=== PATIENT | male | born 1995 | race Hispanic/Latino ===

== ENCOUNTER 2021-06-20 20:20 | Emergency (ER) | payer BC, OTHER ==
[2021-06-20] MEDS ORDERED: CASIRIVIMAB/IMDEVIMAB 10 ML VIAL ONE (21:40)
[2021-06-20] MEDS ORDERED: NA CHLORIDE 0.9% 250 ML ONE (21:43)
[2021-06-20] MEDS ORDERED: NA CHLORIDE 0.9% 50 ML ONE (21:43)
--- NOTE | 2021-06-20 21:46 | RAD REPORT ---
EXAM DESCRIPTION: Devyn Single View06/20/2021 9:28 pm CLINICAL HISTORY: Chest pain COMPARISON: none FINDINGS: Moderate bilateral pulmonary opacities. The heart is normal size IMPRESSION: Moderate bilateral pulmonary opacities probably pneumonia
[2021-06-20] MEDS ORDERED: ACETAMINOPHEN 500 MG TAB ONE (21:54)
--- NOTE | 2021-06-20 22:59 | ER ---
Nurse's Notes [facility] Name: Du Chau Age: 25 yrs Sex: Male : 1995 Arrival Date: 06/20/2021 Time: 20:23 Bed 10 Private MD: Diagnosis: Pneumonia due to SARS-associated coronavirus Presentation: 06/20 20:35 Chief complaint: Patient states: Pt states he has been feeling SOB for 3 days. States wg he was seen at urgent care and diagnosed with Covid today, for work, but didn't tell them he was having SOB. Pt has had a non-productive cough and had a little blood from his nose. Denies N/V/D. Pt denies taking anything for fever/discomfort. Coronavirus screen: Client presents with at least one sign or symptom that may indicate coronavirus-19. Standard/surgical mask placed on the client. Provider contacted for isolation considerations. Client reports previous positive COVID test result. Date of collection: June 20, 2021. Ebola Screen: Patient negative for fever greater than or equal to 101.5 degrees Fahrenheit, and additional compatible Ebola Virus Disease symptoms Patient denies exposure to infectious person. Patient denies travel to an Ebola-affected area in the 21 days before illness onset. No symptoms or risks identified at this time. Initial Sepsis Screen: Does the patient meet any 2 criteria? No. Patient's initial sepsis screen is negative. Does the patient have a suspected source of infection? No. Patient's initial sepsis screen is negative. Risk Assessment: Do you want to hurt yourself or someone else? Patient reports no desire to harm self or others. Onset of symptoms was June 17, 2021. 20:35 Method Of Arrival: Ambulatory 20:35 Acuity: LESLIE 4 Triage Assessment: 20:38 General: Appears in no apparent distress. well groomed, well developed, Behavior is calm, cooperative, appropriate for age. Pain: Denies pain. Respiratory: Reports shortness of breath at rest on exertion cough that is non-productive, dry, Airway is patent Trachea midline Respiratory effort is even, unlabored, Respiratory pattern is regular, Breath sounds are clear bilaterally. Onset: The symptoms/episode began/occurred gradually, the patient has mild shortness of breath. Historical: - Allergies: 20:38 No Known Allergies; wg - Home Meds: 20:38 None [Active]; wg - PMHx: 20:38 None; wg - Immunization history:: Adult Immunizations up to date. - Social history:: Smoking status: Patient denies any tobacco usage or history of. Screenin:45 Abuse screen: Denies threats or abuse. Nutritional screening: No deficits noted. cc4 Tuberculosis screening: No symptoms or risk factors identified. Fall Risk None identified. Assessment: 20:45 Cardiovascular: Denies chest pain, Heart tones S1 S2 Capillary refill < 3 seconds cc4 Rhythm is sinus rhythm. Respiratory: Reports shortness of breath cough that is productive, Airway is patent. 20:45 GI: No signs and/or symptoms were reported involving the gastrointestinal system. cc4 21:37 Reassessment: patient presented his covid positive results from clinic earlier today. ms4 LORETTA Barkley gave order to give regencov. consents signed. 22:00 Reassessment: No changes from previously documented assessment. Consent signed for cc4 Regen administration with information given on Regen \T\ v/u; saline lock inserted left wrist with #22 g angiocath, miguel. well; Regen 600mg/250 ml NS hung \T\ infusing left wrist with no s/sx's of infiltration, miguel. well; VSS.. 23:00 Reassessment: No changes from previously documented assessment. Regen infusion cc4 complete; denies any complaints; VSS; instructed on monitoring for additional one hour with v/u; NADN. 06/21 00:00 Reassessment: Patient appears in no apparent distress at this time. Denies any cc4 complaints; reports feeling better; VSS; NADN. Patient states feeling better. Vital Signs: 06/20 20:35 BP 125 / 96; Pulse 92; Resp 18; Temp 98.7; Pulse Ox 97% on R/A; Weight 99.79 kg; Height 5 ft. 11 in. (180.34 cm); Pain 0/10; 20:45 BP 115 / 72; Pulse 90; Resp 20; Pulse Ox 97% on R/A; cc4 22:00 BP 118 / 65; Pulse 90; Resp 21; Temp 97.8(O); Pulse Ox 96% on R/A; cc4 23:00 BP 100 / 63; Pulse 78; Resp 22; Temp 97.8(O); Pulse Ox 97% on R/A; cc4 06/21 00:00 BP 109 / 55; Pulse 78; Resp 20; Temp 97.7; Pulse Ox 97% on R/A; cc4 06/20 20:35 Body Mass Index 30.68 (99.79 kg, 180.34 cm) ED Course: 06/20 20:23 Patient arrived in ED. cf2 20:38 Triage completed. wg 20:38 Arm band placed on right wrist. wg 20:40 Eliane Hdez, CRUZ is Primary Nurse. cc4 20:48 Filippo Monsivais PA is PHCP. jr8 20:48 Marc Helton MD is Attending Physician. jr8 :28 XRAY Chest (1 view) In Process Unspecified. EDMS 22:45 No provider procedures requiring assistance completed. cc4 06/21 00:00 Patient has correct armband on for positive identification. Call light in reach. cc4 00:00 IV discontinued, intact, bleeding controlled, No redness/swelling at site. Pressure cc4 dressing applied. Administered Medications: 00:33 Discontinued: REGEN-COV Dose Pack 120 mg/mL-120 mg/mL (EUA) 600 mg IV at calculated cc4 rate Per protocol 06/20 21:31 Drug: Tylenol 1000 mg Route: PO; ms4 23:10 Follow up: Response: No adverse reaction cc4 22:00 Drug: REGEN-COV Dose Pack 120 mg/mL-120 mg/mL (EUA) 600 mg Route: IV; Rate: calculated cc4 rate; Site: left wrist; 23:00 Follow up: Response: No adverse reaction; No change in condition cc4 Outcome: 22:59 Discharge ordered by . jr8 06/21 00:00 Condition: improved cc4 00:00 Discharged to home ambulatory. cc4 00:00 Condition: stable 00:00 Discharge instructions given to patient, Instructed on discharge instructions, follow up and referral plans. medication usage, Demonstrated understanding of instructions, follow-up care, medications, Prescriptions given X 1. 00:34 Patient left the ED. cc4 Signatures: Dispatcher [employer] EDMS Filippo Monsivais PA PA jr8 Becky Walters cf2 Aaliyah Cartagena RN RN ms4 Gamba, Calvin, Eliane Browning RN RN cc4 Corrections: (The following items were deleted from the chart) 06/20 21:00 20:57 General: Appears uncomfortable, Behavior is calm, cooperative, cc4 cc4 : 20:57 Cardiovascular: cc4 cc4
--- NOTE | 2021-06-20 22:59 | EDPHYS ---
Physician Documentation [facility] Name: Du Chau Age: 25 yrs Sex: Male : 1995 Arrival Date: 06/20/2021 Time: 20:23 Bed 10 Private MD: ED Physician Marc Helton HPI: 06/20 21:14 This 25 yrs old Male presents to ER via Ambulatory with complaints of jr8 Breathing Difficulty, VOMITING BLOOD, Nose Bleed, COVID POSITIVE. 21:14 This is a 25-year-old male that presented with signs and symptoms of Covid. Stated that jr8 the symptoms started today and was to tested at urgent care and was tested positive. At that time did not notify them that he was short of breath but has had mild increase in shortness of breath with his coughing throughout this evening. Came back for further evaluation.. Historical: - Allergies: 20:38 No Known Allergies; wg - Home Meds: 20:38 None [Active]; wg - PMHx: 20:38 None; wg - Immunization history:: Adult Immunizations up to date. - Social history:: Smoking status: Patient denies any tobacco usage or history of. ROS: 21:14 Eyes: Negative for injury, pain, redness, and discharge, ENT: Negative for injury, jr8 pain, and discharge, Neck: Negative for injury, pain, and swelling, Cardiovascular: Negative for chest pain, palpitations, and edema, Abdomen/GI: Negative for abdominal pain, nausea, vomiting, diarrhea, and constipation, Back: Negative for injury and pain, MS/Extremity: Negative for injury and deformity, Skin: Negative for injury, rash, and discoloration, Neuro: Negative for headache, weakness, numbness, tingling, and seizure. 21:14 Respiratory: Positive for cough, shortness of breath. Exam: 21:14 Eyes: Pupils equal round and reactive to light, extra-ocular motions intact. Lids and jr8 lashes normal. Conjunctiva and sclera are non-icteric and not injected. Cornea within normal limits. Periorbital areas with no swelling, redness, or edema. ENT: Nares patent. No nasal discharge, no septal abnormalities noted. Tympanic membranes are normal and external auditory canals are clear. Oropharynx with no redness, swelling, or masses, exudates, or evidence of obstruction, uvula midline. Mucous membranes moist. Neck: Trachea midline, no thyromegaly or masses palpated, and no cervical lymphadenopathy. Supple, full range of motion without nuchal rigidity, or vertebral point tenderness. No Meningismus. Cardiovascular: Regular rate and rhythm with a normal S1 and S2. No gallops, murmurs, or rubs. Normal PMI, no JVD. No pulse deficits. Respiratory: Lungs have equal breath sounds bilaterally, clear to auscultation and percussion. No rales, rhonchi or wheezes noted. Mild tachypnea present Abdomen/GI: Soft, non-tender, with normal bowel sounds. No distension or tympany. No guarding or rebound. No evidence of tenderness throughout. Back: No spinal tenderness. No costovertebral tenderness. Full range of motion. Skin: Warm, dry with normal turgor. Normal color with no rashes, no lesions, and no evidence of cellulitis. MS/ Extremity: Pulses equal, no cyanosis. Neurovascular intact. Full, normal range of motion. Neuro: Awake and alert, GCS 15, oriented to person, place, time, and situation. Cranial nerves II-XII grossly intact. Motor strength 5/5 in all extremities. Sensory grossly intact. Cerebellar exam normal. Normal gait. Vital Signs: 20:35 BP 125 / 96; Pulse 92; Resp 18; Temp 98.7; Pulse Ox 97% on R/A; Weight 99.79 kg; Height wg 5 ft. 11 in. (180.34 cm); Pain 0/10; 20:45 BP 115 / 72; Pulse 90; Resp 20; Pulse Ox 97% on R/A; cc4 22:00 BP 118 / 65; Pulse 90; Resp 21; Temp 97.8(O); Pulse Ox 96% on R/A; cc4 23:00 BP 100 / 63; Pulse 78; Resp 22; Temp 97.8(O); Pulse Ox 97% on R/A; cc4 06/21 00:00 BP 109 / 55; Pulse 78; Resp 20; Temp 97.7; Pulse Ox 97% on R/A; cc4 06/20 20:35 Body Mass Index 30.68 (99.79 kg, 180.34 cm) [facility]: 06/20 20:48 Patient medically screened. jr8 22:58 Data reviewed: vital signs, nurses notes, radiologic studies, plain films. Data jr8 interpreted: Pulse oximetry: on room air is 96 %. Interpretation: normal. Counseling: I had a detailed discussion with the patient and/or guardian regarding: the historical points, exam findings, and any diagnostic results supporting the discharge/admit diagnosis, lab results, radiology results, the need for outpatient follow up, a family practitioner, to return to the emergency department if symptoms worsen or persist or if there are any questions or concerns that arise at home. ED course: Patient tolerated infusion well. Pulse oximetry remains normal level. Patient less short of breath. Was sent home on some cough medicine as well. No other further medications needed at this time. Close return precautions given as well.. 06/20 20:56 Order name: XRAY Chest (1 view); Complete Time: 21:48 jr8 Administered Medications: 06/21 00:33 Discontinued: REGEN-COV Dose Pack 120 mg/mL-120 mg/mL (EUA) 600 mg IV at calculated cc4 rate Per protocol 06/20 21:31 Drug: Tylenol 1000 mg Route: PO; ms4 23:10 Follow up: Response: No adverse reaction cc4 22:00 Drug: REGEN-COV Dose Pack 120 mg/mL-120 mg/mL (EUA) 600 mg Route: IV; Rate: calculated cc4 rate; Site: left wrist; 23:00 Follow up: Response: No adverse reaction; No change in condition cc4 Disposition: 06/21 05:34 Co-signature as Attending Physician, Marc Helton MD. [email or web address] Disposition Summary: 06/20/21 22:59 Discharge Ordered Location: Home jr8 Problem: new jr8 Symptoms: have improved jr8 Condition: Stable jr8 Diagnosis - Pneumonia due to SARS-associated coronavirus jr8 Followup: jr8 - With: Private Physician - When: 2 - 3 days - Reason: Recheck today's complaints, Continuance of care, Re-evaluation by your physician Discharge Instructions: - Discharge Summary Sheet jr8 - COVID-19 jr8 Forms: - Medication Reconciliation Form jr8 - Thank You Letter jr8 - Antibiotic Education jr8 - Prescription Opioid Use jr8 Prescriptions: - promethazine-DM 6.25-15 mg/5 mL Oral syrup - take 5 milliliter by ORAL route every 4-6 hours as needed, not to exceed 30 mL jr8 in 24 hours; 120 milliliter; Refills: 0, Product Selection Permitted Signatures: Dispatcher [employer] Filippo Zhang PA PA jr8 Marc Helton MD MD mh7 Aaliyah Cartagena RN RN ms4 Calvin Jacob RN wg Cooper, Christie, RN RN cc4
[2021-06-21 00:42] VITALS: O2SAT 97
[2021-06-21 00:43] VITALS: BP 109/55; TEMP 97.7
== END 2021-06-21 00:34 | disposition home or self-care (01) ==
LOC: ER 20:20
DX: U07.1 COVID-19 (principal); J12.82 Pneumonia due to coronavirus disease 2019
CPT/HCPCS: 71045; 96374; 99284; J7050

== ENCOUNTER 2022-04-16 16:37 | Observation (INO) | payer BC ==
--- OUTSIDE RECORDS SUMMARY | 2022-04-16 16:40 | XMS REPORT | Continuity of Care Document ---
:1995 Author Organization [facility] t Address [address] [place] [address] Dr. [address] [place] [address] Care Team Providers Name Role Phone Pcp, Does Not Have A Primary Care Physician ELDA VALVERDE Attending Clinician Unavailable Elda Valverde MD Attending Clinician Nurse, Db Urgent [facility] Attending Clinician Unavailable Ayaan BALL MILL MIXER Attending Clinician AYAAN Attending Clinician Unavailable Only, Db Test Attending Clinician Unavailable Sunday BERNSTEIN Attending Clinician Eden Conteh DO Attending Clinician Doctor Unassigned, Name Attending Clinician Unavailable Provider, Db Urgent Care Attending Clinician Unavailable Payers Payer Name Policy Type Policy Number Effective Date Expiration Date [facility] [id number] 2013 [facility] MEDICAID 00:00:00 [facility] - [id number] 2018 OUT OF STATE 00:00:00 Problems Condition Condition Condition Status Onset Resolution Last Treating Co mments Source Name Details Category Date Date Treatment Clinician Date Acne Acne Disease Active Univers cystica cystica 06-05 ity of 00:00: [address] Allergies, Adverse Reactions, Alerts Allergy Allergy Status Severity Reaction(s) Onset Inactive Treating Comm ents Source Name Type Date Date Clinician NO KNOWN Drug Active Univers ALLERGIE Class ity of [facility] Social History Social Habit Start Date Stop Date Quantity Comments Source Exposure to 2022-04-06 2022-04-16 Not sure University of SARS-CoV-2 00:00:00 14:33:00 [place] [facility] (event) Branch Alcohol intake 2022-04-03 2022-04-03 Current University 00:00:00 00:00:00 non-drinker of [facility] alcohol (finding) [place] Tobacco use and 2013-05-05 2013-05-05 Smokeless tobacco Un iversity of exposure 00:00:00 00:00:00 non-user [facility] Sex Assigned At [birth year] Universit y of 00:00:00 00:00:00 [facility] Smoking Status Start Date Stop Date Source Never smoked tobacco [facility] Medications Ordered Filled Start Stop Current Ordering Indication Dosage Frequency Signature Comments Components Source Medication Medication Date Date Medication? Clinician (SIG) Name Name bromphenira Yes [id number] 5mL Take 5 mL Univers mine-pseudo 9-29 by mouth 4 it y of ephedrine-D 00:00: (four) [place] s M (BROMFED 00 times Medical DM) 2-30-10 daily as Bran ch mg/5 mL needed for syrup Congestion /Allergies . albuterol Yes [id number] 2{puff} Inhale 2 Univers 90 9-29 Puffs ity of mcg/actuati 00:00: every 4 [place] as on inhaler 00 (four) Medical hours as Branch needed for Wheezing or Shortness of Breath. benzonatate Yes [id number] 100mg Take 1 Univers 100 mg 9-29 capsule by ity of capsule 00:00: mouth 3 [place] 00 (three) Medical times Branch daily as needed for Cough. bromphenira Yes [id number] 5mL Take 5 mL Univers mine-pseudo 9-29 by mouth 4 it y of ephedrine-D 00:[place]: ([place] ([place] 00 times Medical DM) 2-30-10 daily as Bran ch mg/5 mL needed for syrup Congestion /Allergies . albuterol Yes [id number] 2{puff} Inhale 2 Univers 90 9-29 Puffs ity of mcg/actuati 00:00: every 4 [place] as on inhaler 00 (four) Medical hours as Branch needed for Wheezing or Shortness of Breath. benzonatate Yes [id number] 100mg Take 1 Univers 100 mg 9-29 capsule by ity of capsule 00:00: mouth 3 [place] 00 (three) Medical times Branch daily as needed for Cough. bromphenira 0 Yes [id number] 5mL Take 5 mL Univers mine-pseudo 9-29 by mouth 4 it y of ephedrine-D 00:00: (four[place] (BROMF[place] 00 times Medical DM) 2-30-10 daily as Bran ch mg/5 mL needed for syrup Congestion /Allergies . albuterol Yes [id number] 2{puff} Inhale 2 Univers 90 9-29 Puffs ity of mcg/actuati 00:00: every 4 [place] as on inhaler 00 (four) Medical hours as Branch needed for Wheezing or Shortness of Breath. benzonatate Yes [id number] 100mg Take 1 Univers 100 mg 9-29 capsule by ity of capsule 00:00: mouth 3 [place] 00 (three) Medical times Branch daily as needed for Cough. bromphenira Yes [id number] 5mL Take 5 mL Univers mine-pseudo 9-29 by mouth 4 it y of ephedrine-D 00:00: (four[place] (BROMFED 00 times Medical DM) 2-30-10 daily as Bran ch mg/5 mL needed for syrup Congestion /Allergies . albuterol Yes [id number] 2{puff} Inhale 2 Univers 90 9-29 Puffs ity of mcg/actuati 00:00: every 4 [place] as on inhaler 00 (four) Medical hours as Branch needed for Wheezing or Shortness of Breath. benzonatate Yes [id number] 100mg Take 1 Univers 100 mg 9-29 capsule by ity of capsule 00:00: mouth 3 [place] 00 (three) Medical times Branch daily as needed for Cough. clindamycin Yes [id number] Apply to Univers -benzoyl 8-18 affected ity of peroxide 00:00: area(s) [place] (BENZACLIN 00 every Medical PUMP) gel morning. Branch minocycline Yes [id number] 100mg Take 1 Tab Univers (DYNACIN) 8-18 by mouth 2 ity of 100 mg 00:00: (two) [place] tablet 00 times Medical daily. Branch tretinoin Yes [id number] Apply to Univers (RETIN-A) 8-18 affected ity of 0.05 % 00:00: area(s) at [place] cream 00 bedtime. Medical Branch clindamycin Yes [id number] Apply to Univers -benzoyl 8-18 affected ity of peroxide 00:00: area(s) [place] (BENZACLIN 00 every Medical PUMP) gel morning. Branch minocycline Yes [id number] 100mg Take 1 Tab Univers (DYNACIN) 8-18 by mouth 2 ity of 100 mg 00:00: (two) [place] tablet 00 times Medical daily. Branch tretinoin Yes [id number] Apply to Univers (RETIN-A) 8-18 affected ity of 0.05 % 00:00: area(s) at [place] cream 00 bedtime. Medical Branch clindamycin Yes [id number] Apply to Univers -benzoyl 8-18 affected ity of peroxide 00:00: area(s) [place] (BENZACLIN 00 every Medical PUMP) gel morning. Branch minocycline Yes [id number] 100mg Take 1 Tab Univers (DYNACIN) 8-18 by mouth 2 ity of 100 mg 00:00: (two) [place] tablet 00 times Medical daily. Branch tretinoin Yes [id number] Apply to Univers (RETIN-A) 8-18 affected ity of 0.05 % 00:00: area(s) at [place] cream 00 bedtime. Medical Branch clindamycin Yes [id number] Apply to Univers -benzoyl 8-18 affected ity of peroxide 00:00: area(s) [place] (BENZACLIN 00 every Medical PUMP) gel morning. Branch minocycline Yes [id number] 100mg Take 1 Tab Univers (DYNACIN) 8-18 by mouth 2 ity of 100 mg 00:00: (two) [place] tablet 00 times Medical daily. Branch tretinoin Yes [id number] Apply to Univers (RETIN-A) 8-18 affected ity of 0.05 % 00:00: area(s) at [place] cream 00 bedtime. Medical Branch clindamycin Yes [id number] Apply to Univers -benzoyl 8-18 affected ity of peroxide 00:00: area(s) [place] (BENZACLIN 00 every Medical PUMP) gel morning. Branch minocycline Yes [id number] 100mg Take 1 Tab Univers (DYNACIN) 8-18 by mouth 2 ity of 100 mg 00:00: (two) [place] tablet 00 times Medical daily. Branch tretinoin Yes [id number] Apply to Univers (RETIN-A) 8-18 affected ity of 0.05 % 00:00: area(s) at [place] cream 00 bedtime. Medical Branch clindamycin Yes [id number] Apply to Univers -benzoyl 8-18 affected ity of peroxide 00:00: area(s) [place] (BENZACLIN 00 every Medical PUMP) gel morning. Branch minocycline Yes [id number] 100mg Take 1 Tab Univers (DYNACIN) 8-18 by mouth 2 ity of 100 mg 00:00: (two) [place] tablet 00 times Medical daily. Branch tretinoin Yes [id number] Apply to Univers (RETIN-A) 8-18 affected ity of 0.05 % 00:00: area(s) at [place] cream 00 bedtime. Medical Branch clindamycin Yes [id number] Apply to Univers -benzoyl 8-18 affected ity of peroxide 00:00: area(s) [place] (BENZACLIN 00 every Medical PUMP) gel morning. Branch minocycline Yes [id number] 100mg Take 1 Tab Univers (DYNACIN) 8-18 by mouth 2 ity of 100 mg 00:00: (two) [place] tablet 00 times Medical daily. Branch tretinoin Yes [id number] Apply to Univers (RETIN-A) 8-18 affected ity of 0.05 % 00:00: area(s) at [place] cream 00 bedtime. Medical Branch clindamycin Yes [id number] Apply to Univers -benzoyl 8-18 affected ity of peroxide 00:00: area(s) [place] (BENZACLIN 00 every Medical PUMP) gel morning. Branch clindamycin Yes [id number] Apply to Univers -benzoyl 8-18 affected ity of peroxide 00:00: area(s) [place] (BENZACLIN 00 every Medical PUMP) gel morning. Branch minocycline Yes [id number] 100mg Take 1 Tab Univers (DYNACIN) 8-18 by mouth 2 ity of 100 mg 00:00: (two) [place] tablet 00 times Medical daily. Branch tretinoin Yes [id number] Apply to Univers (RETIN-A) 8-18 affected ity of 0.05 % 00:00: area(s) at [place] cream 00 bedtime. Medical Branch minocycline Yes [id number] 100mg Take 1 Tab Univers (DYNACIN) 8-18 by mouth 2 ity of 100 mg 00:00: (two) [place] tablet 00 times Medical daily. Branch tretinoin Yes [id number] Apply to Univers (RETIN-A) 8-18 affected ity of 0.05 % 00:00: area(s) at [place] cream 00 bedtime. Medical Branch minocycline Yes 100mg Take 1 Tab Univers (DYNACIN) 9-30 by mouth 2 ity of 100 mg 00:00: (two) [place] tablet 00 times Medical daily. Branch clindamycin Yes Apply to U nivers -benzoyl 9-30 affected ity of peroxide 00:00: area(s) [place] (BENZACLIN 00 every Medical PUMP) gel morning. Branch minocycline Yes 100mg Take 1 Tab Univers (DYNACIN) 9-30 by mouth 2 ity of 100 mg 00:00: (two) [place] tablet 00 times Medical daily. Branch clindamycin Yes Apply to U nivers -benzoyl 9-30 affected ity of peroxide 00:00: area(s) [place] (BENZACLIN 00 every Medical PUMP) gel morning. Branch minocycline Yes 100mg Take 1 Tab Univers (DYNACIN) 9-30 by mouth 2 ity of 100 mg 00:00: (two) [place] tablet 00 times Medical daily. Branch clindamycin Yes Apply to U nivers -benzoyl 9-30 affected ity of peroxide 00:00: area(s) [place] (BENZACLIN 00 every Medical PUMP) gel morning. Branch minocycline Yes 100mg Take 1 Tab Univers (DYNACIN) 9-30 by mouth 2 ity of 100 mg 00:00: (two) [place] tablet 00 times Medical daily. Branch clindamycin Yes Apply to U nivers -benzoyl 9-30 affected ity of peroxide 00:00: area(s) [place] (BENZACLIN 00 every Medical PUMP) gel morning. Branch minocycline 2012- Yes 100mg Take 1 Tab Univers (DYNACIN) 9-30 by mouth 2 ity of 100 mg 00:00: (two) [place] tablet 00 times Medical daily. Branch clindamycin Yes Apply to U nivers -benzoyl 9-30 affected ity of peroxide 00:00: area(s) [place] (BENZACLIN 00 every Medical PUMP) gel morning. Branch minocycline Yes 100mg Take 1 Tab Univers (DYNACIN) 9-30 by mouth 2 ity of 100 mg 00:00: (two) [place] tablet 00 times Medical daily. Branch clindamycin Yes Apply to U nivers -benzoyl 9-30 affected ity of peroxide 00:00: area(s) [place] (BENZACLIN 00 every Medical PUMP) gel morning. Branch minocycline Yes 100mg Take 1 Tab Univers (DYNACIN) 9-30 by mouth 2 ity of 100 mg 00:00: (two) [place] tablet 00 times Medical daily. Branch clindamycin Yes Apply to U nivers -benzoyl 9-30 affected ity of peroxide 00:00: area(s) [place] (BENZACLIN 00 every Medical PUMP) gel morning. Branch minocycline Yes 100mg Take 1 Tab Univers (DYNACIN) 9-30 by mouth 2 ity of 100 mg 00:00: (two) [place] tablet 00 times Medical daily. Branch clindamycin Yes Apply to U nivers -benzoyl 9-30 affected ity of peroxide 00:00: area(s) [place] (BENZACLIN 00 every Medical PUMP) gel morning. Branch minocycline Yes 100mg Take 1 Tab Univers (DYNACIN) 9-30 by mouth 2 ity of 100 mg 00:00: (two) [place] tablet 00 times Medical daily. Branch clindamycin Yes Apply to U nivers -benzoyl 9-30 affected ity of peroxide 00:00: area(s) [place] (BENZACLIN 00 every Medical PUMP) gel morning. Branch Vital Signs Vital Name Observation Time Observation Value Comments Source Systolic blood 2022-04-16 19:33:00 135 mm[Hg] Univer sity of pressure [facility] Diastolic blood 2022-04-16 19:33:00 82 mm[Hg] [facility] Heart rate 2022-04-16 19:33:00 80 [facility] Body temperature 2022-04-16 19:33:00 37.06 Rupali Univ ersity of [place] [facility] Respiratory rate 2022-04-16 19:33:00 18 /min Univ ersity of [place] [facility] Body height 2022-04-16 19:33:00 180.3 cm Universi ty [facility] [place] [facility] Body weight 2022-04-16 19:33:00 95.255 kg Universi ty [facility] [place] [facility] BMI 2022-04-16 19:33:00 29.29 kg/m2 Universi ty [facility] [place] [facility] Oxygen saturation in 2022-04-16 19:33:00 100 /min University of Arterial blood by [place] [employer] kassidy Pulse oximetry Branch Systolic blood 2022-04-16 18:50:00 124 mm[Hg] Univer sity of pressure [place] [facility] Diastolic blood 2022-04-16 18:50:00 76 mm[Hg] Unive rsity of pressure [place] [facility] Heart rate 2022-04-16 18:50:00 82 /min Universi ty [facility] [place] [facility] Body temperature 2022-04-16 18:50:00 37.33 Rupali Univ ersity [facility] [place] [facility] Respiratory rate 2022-04-16 18:50:00 18 /min Univ ersity of [place] [facility] Body height 2022-04-16 18:50:00 180.3 cm Universi ty [facility] [place] [facility] Body weight 2022-04-16 18:50:00 95.255 kg [facility]i ty [facility] [place] [facility] BMI 2022-04-16 18:50:00 29.29 kg/m2 [facility]i ty [facility] [place] [facility] Oxygen saturation in 2022-04-16 18:50:00 97 /min University of Arterial blood by [place] [employer]assidy Pulse oximetry Branch Systolic blood 2021-06-21 16:31:00 125 mm[Hg] Univer sity of pressure [place] [facility] Diastolic blood 2021-06-21 16:31:00 74 mm[Hg] Unive rsity of pressure [place] [facility] Heart rate 2021-06-21 16:31:00 94 /min Universi ty [facility] [place] [facility] Body temperature 2021-06-21 16:31:00 38.11 Rupali Univ ersity [facility] [place] [facility] Respiratory rate 2021-06-21 16:31:00 21 /min Univ ersity of [place] [facility] Body weight 2021-06-21 16:31:00 99.791 kg Universi ty of [facility] Oxygen saturation in 2021-06-21 16:31:00 95 /min University Arterial blood by [facility] Pulse oximetry Branch Procedures Procedure Date / Time Performed Performing Clinician [facility] e CONSENT/REFUSAL FOR 2022-04-16 19:16:10 Doctor Unassigned, [facility] AND Name Medical Branch TREATMENT ASSIGNMENT OF BENEFITS 2021-06-19 18:53:07 Doctor Unassigned, No [facility] Name Medical Branch Encounters Start End Encounter Admission Attending Care Care Encounter Source Date/Time Date/Time Type Type Clinicians Facility Department ID 2021-07-25 Emergency [facility] [id number] Univers 02:20:05 ity of [facility] 2022-04-16 2022-04-16 Emergency X AUFDERIDE [facility] ERT [id number] Univers 14:34:00 16:09:00 , SONIA ity of [facility] 2022-04-16 2022-04-16 Emergency Aufderide [facility] [id number] [id number] Univers 14:34:00 16:09:00 , Sonia TAYLOR [id number] i ty of [place] AVALOS [id number] [facility] [phone] [facility] 084 Branch 2022-04-16 2022-04-16 Nurse Nurse, Gen[facility] [id number] [id number] Univers 14:00:00 14:20:00 Visit Yoly Taveras [facility] [id number] ity [facility] [id number] [facility] as RODRI?BLEA [phone] Vt delilahrock [facility] [address] [place] MEDICAL OFFICE BUILDING 2022-04-16 2022-04-16 Outpatient R [facility] [id number] Univers 14:00:00 14:00:00 [id number] ity [facility] 2022-04-16 2022-04-16 Outpatient R AYAAN [facility] [id number] Univers 14:00:00 14:00:00 YOLY [place]in[place] o f [facility] 2021-06-24 2021-06-24 Laboratory Only, Ang Db Test [facility] 1.2.8 40.114 [id number] Univers 12:08:32 12:23:32 Only Karen Brand [facility] [id number] ity of [place] [id number] [place] Rodri?Blea [phone] [address] Medical Office [facility] 2021-06-24 2021-06-24 Outpatient R [facility] [id number] Univers 12:00:00 12:00:00 [id number] ity of [facility] 2021-06-24 2021-06-24 Outpatient R [facility] [id number] Univers 12:00:00 12:00:00 ity [facility] 2021-06-21 2021-06-21 Emergency [facility] 1.2.840.114 [id number] Univers 11:33:00 11:57:00 Kaylin Taylor [id number] ity [facility] [id number] [place] [facility] [id number] [facility] 084 [place] 2021-06-19 2021-06-19 Laboratory Only, Ang Db Test [facility] 1.2.8 40.114 [id number] Univers 13:54:40 14:09:40 Only Yoly Taveras [id number] ity of [place] [id number] [place] as Rodri?Blea [phone] [address] Office [facility] 2021-06-19 2021-06-19 Outpatient R AYAAN [facility] [id number] Univers 13:45:00 13:45:00 YOLY [place]in[place] o f [facility] 2021-06-19 2021-06-19 Letter Doctor ONTIVEROS 1.2.840.114 [id number] Univers 00:00:00 00:00:00 (Out) Unassigned, DARIUS [id number] [facility] [place] [id number] [place] as [phone] [facility] [address] [place] 2021-06-19 2021-06-19 Letter Doctor ONTIVER[facility] 1.2.840.114 [id number] Univers 00:00:00 00:00:00 (Out) Unassigned, DARIUS [id number] ity of [facility] [id number] Parish as [phone] [facility] 044 Branch 2021-06-19 2021-06-19 Letter Provider, SIMON [id number] Univers 00:00:00 00:00:00 (Out) [facility] [id number] it y of [facility] [place] [id number] [place] Rodri?Blea [id number] Vt dical [address] Medical Office Building 2021-06-19 2021-06-19 Orders Doctor [place] 1.2.840.114 [id number] Univers 00:00:00 00:00:00 Only Unassigned, DARIUS [id number] ity of [facility] [id number] Parish as [phone] [facility] 009 Branch Results This patient has no known results.
[2022-04-16] MEDS ORDERED: ONDANSETRON 4 MG/2 ML VIAL ONE ×2 (18:13→21:31)
[2022-04-16] MEDS ORDERED: NA CHLORIDE 0.9% 1,000 ML ONE (18:13)
[2022-04-16] MEDS ORDERED: KETOROLAC 30 MG/ML INJ ONE ×2 (18:13→21:31)
[2022-04-16 18:28] LABS: Absolute Lymphocytes (CBC) 2.1 K/uL (0.7-4.9); Lymphocytes % 15.3 % (15.3-44.8); MCV 84.7 fL (80-100); MPV 9.8 fL (7.6-11.3); RBC Red Blood Cell Count 5.08 M/uL (4.33-5.43)
[2022-04-16 18:42] LABS: Urine Blood Trace-intact (Negative); Urine Glucose Negative (Negative); Urine Protein Negative (Negative); Urine Specific Gravity >=1.030 (1.005-1.030)
[2022-04-16 18:47] LABS: Bilirubin Total 0.4 mg/dL (0.2-1.0); Potassium 3.5 mmol/L (3.5-5.1); Protein, Total 7.8 g/dL (6.4-8.2)
[2022-04-16 19:26] LABS: Urine RBC <5 /HPF (None Seen)
[2022-04-16 19:27] LABS: Urine Bacteria <20 /HPF (<20); Urine Mucus 1+ /HPF (None Seen)
--- NOTE | 2022-04-16 20:08 | RAD REPORT ---
EXAM DESCRIPTION: CT - Abdomen Pelvis W Contrast - 04/16/2022 7:41 pm CLINICAL HISTORY: Abdominal pain, acute, nonlocalized COMPARISON: No comparisons TECHNIQUE: Biphasic, helical CT imaging of the abdomen and pelvis was performed following 100 ml non -ionic IV contrast. Oral contrast was given. All CT scans are performed using dose optimization technique as appropriate and may include automated exposure control or mA/KV adjustment according to patient size. FINDINGS: No suspicious findings in the lung bases. The liver, spleen, and pancreas show no suspicious findings. Liver attenuation is borderline fatty in filtrated. No portal vein abnormality. Gallbladder and biliary tree are also without suspicious findi ng. Symmetric renal function is seen with no hydronephrosis or suspicious renal mass. No pyelonephritis o r acute parenchymal process. No bladder abnormalities. No adrenal abnormalities. No stomach or small bowel abnormality. The appendix is abnormal. Hyperdense material is present in th e proximal and midportion of the appendix possibly a cluster of small appendicoliths. This could be c ontrast from an old diagnostic study. The appendix extends medially with the tip in the midline lower abdomen. The tip of the appendix is dilated to 12 mm with wall thickening and stranding in the peria ppendiceal fat. No perforation is suspected. No acute colon process. No free air or pneumatosis. No other site of inflammatory or infectious stranding. No mass or bulky lymphadenopathy. Fat only umbilical hernia is present. No suspicious bony findings. IMPRESSION: Early acute appendicitis. No perforation or or surgically complicating finding. Base of the appendix is in classic right lower quadrant but the appendix tracks to the midline with t he tip in the posterior midline abdomen below the umbilical level.
--- NOTE | 2022-04-16 20:36 | ER ---
Nurse's Notes [facility] Name: Du Chau Age: 26 yrs Sex: Male : 1995 Arrival Date: 04/16/2022 Time: 16:39 Bed 7 Private MD: Diagnosis: Acute appendicitis with localized peritonitis Presentation: 04/16 17:44 Chief complaint: Patient states: Diffuse abdominal pain since this morning, denies jl7 N/V/D. Coronavirus screen: At this time, the client does not indicate any symptoms associated with coronavirus-19. Ebola Screen: No symptoms or risks identified at this time. Initial Sepsis Screen: Does the patient meet any 2 criteria? No. Patient's initial sepsis screen is negative. Does the patient have a suspected source of infection? No. Patient's initial sepsis screen is negative. Risk Assessment: Do you want to hurt yourself or someone else? Patient reports no desire to harm self or others. Onset of symptoms was April 16, 2022. 17:44 Method Of Arrival: Ambulatory [facility] 17:44 Acuity: LESLIE 3 jl7 Triage Assessment: 17:45 General: Appears in no apparent distress. uncomfortable, Behavior is calm, cooperative, jl7 appropriate for age. Pain: Complains of pain in epigastric area Pain radiates to abdomen diffusely Pain currently is 7 out of 10 on a pain scale. GI: Patient currently denies diarrhea, nausea, vomiting. Historical: - Allergies: 17:45 No Known Allergies; jl7 - Home Meds: 17:45 None [Active]; jl7 - PMHx: 17:45 None; jl7 - PSHx: 17:45 None; jl7 - Immunization history:: Client reports receiving the 2nd dose of the Covid vaccine. - Social history:: Smoking status: Patient denies any tobacco usage or history of. Screenin:05 Abuse screen: Denies threats or abuse. Nutritional screening: No deficits noted. tp1 Tuberculosis screening: No symptoms or risk factors identified. Fall Risk No fall in past 12 months (0 pts). No secondary diagnosis (0 pts). IV access (20 points). Ambulatory Aid- None/Bed Rest/Nurse Assist (0 pts). Gait- Normal/Bed Rest/Wheelchair (0 pts) Mental Status- Oriented to own ability (0 pts). Total Redd Fall Scale indicates No Risk (0-24 pts). Assessment: 18:05 General: Appears in no apparent distress. uncomfortable, Behavior is calm, cooperative. tp1 Pain: Complains of pain in epigastric area, right lower quadrant and left lower quadrant Pain currently is 7 out of 10 on a pain scale. Pain began this morning upon awakening, 0400. Neuro: Level of Consciousness is awake, alert, obeys commands, Oriented to person, place, time, situation. Cardiovascular: Patient's skin is warm and dry. Respiratory: Airway is patent Respiratory effort is even, unlabored. GI: Abdomen is round non-distended, Bowel sounds present X 4 quads. Abdomen is tender to palpation in epigastric area, right lower quadrant and left lower quadrant Patient currently denies diarrhea, nausea, tolerance of food. : No signs and/or symptoms were reported regarding the genitourinary system. Denies burning with urination, pain with urination. EENT: No signs and/or symptoms were reported regarding the EENT system. Derm: Skin is intact, is healthy with good turgor. Musculoskeletal: Circulation, motion, and sensation intact. 19:54 General: Appears in no apparent distress. Behavior is calm, cooperative. Neuro: Level kd3 of Consciousness is awake, alert, obeys commands, Oriented to person, place, time, situation. Cardiovascular: Patient's skin is warm and dry. Respiratory: Airway is patent Trachea midline Respiratory effort is even, unlabored. Vital Signs: 17:44 BP 125 / 68; Pulse 81; Resp 17; Temp 98.1; Pulse Ox 98% ; Weight 95.25 kg; Height 5 ft. jl7 11 in. (180.34 cm); Pain 7/10; 18:00 BP 127 / 80; Pulse 80; Resp 14; Pulse Ox 100% on R/A; tp1 19:54 BP 116 / 76; Pulse 62; Resp 18; Pulse Ox 99% ; kd3 21:04 BP 117 / 65; Pulse 67; Resp 18 S; Pulse Ox 100% on R/A; as6 17:44 Body Mass Index 29.29 (95.25 kg, 180.34 cm) jl7 ED Course: 16:39 Patient arrived in ED. mr 16:44 Percy Macedo PA is PHCP. cp 16:44 Percy Mayers MD is Attending Physician. cp 17:45 Triage completed. jl7 17:45 Arm band placed on right wrist. jl7 18:01 Carolina Peres, RN is Primary Nurse. vg1 18:05 Patient has correct armband on for positive identification. Bed in low position. Call tp1 light in reach. Side rails up X 1. Adult w/ patient. 18:13 Initial lab(s) drawn, by me, sent to lab. Inserted saline lock: 20 gauge in right tp1 antecubital area, using aseptic technique. Blood collected. 19:23 Primary Nurse role handed off by Carolina Peres, RN mw2 19:29 Kvng Mejia, CRUZ is Primary Nurse. as6 19:43 CT Abd/Pelvis - IV Contrast Only In Process Unspecified. EDDE 20:28 Jama Childs MD is Hospitalizing Provider. cp 21:05 No provider procedures requiring assistance completed. Patient admitted, IV remains in as6 place. Administered Medications: 18:15 Drug: NS 0.9% 1000 ml Route: IV; Rate: 1 bolus; Site: right antecubital; tp1 21:06 Follow up: Response: No adverse reaction; IV Status: Completed infusion; IV Intake: as6 1000ml 18:15 Drug: Zofran (Ondansetron) 4 mg Route: IVP; Site: right antecubital; tp1 21:06 Follow up: Response: No adverse reaction as6 18:17 Drug: Ketorolac 15 mg Route: IVP; Site: right antecubital; tp1 21:06 Follow up: Response: No adverse reaction as6 20:46 Drug: Zosyn (piperacillin-tazobactam) 3.375 grams Route: IVPB; Infused Over: 60 mins; kd3 Site: right antecubital; 21:05 Follow up: IV Status: Infusion continued upon admission as6 Medication: 18:24 VIS not applicable for this client. tp1 Intake: 21:06 IV: 1000ml; Total: 1000ml. as6 Outcome: 20:36 Decision to Hospitalize by Provider. cp 21:05 Admitted to OR accompanied by nurse, via wheelchair. as6 21:05 Condition: stable 21:05 Instructed on the need for admit. 21:08 Patient left the ED. as6 Signatures: Dispatcher [employer] EDDE Mandy Frias Corey, PA PA cp Chavez, Jahala, RN RN jl7 Oreland, Lamar 2 Carolina Peres, RN RN vg1 Kvng Mejia, RN RN as6 Skyla Goodman, RN RN kd3 Kiera Gray, RN RN tp1
--- NOTE | 2022-04-16 20:36 | EDPHYS ---
Physician Documentation [facility] Name: Du Chau Age: 26 yrs Sex: Male : 1995 Arrival Date: 04/16/2022 Time: 16:39 Bed 7 Private MD: ED Physician Percy Mayers HPI: 04/16 17:50 This 26 yrs old Male presents to ER via Ambulatory with complaints of cp Abdominal Pain. 17:50 The patient presents with abdominal pain mid abdomen. Onset: The symptoms/episode cp began/occurred this morning. 17:50 The symptoms do not radiate. Associated signs and symptoms: none. cp 17:50 Modifying factors: the symptoms are aggravated by movement. cp 17:50 The symptoms are described as constant. cp 17:50 Severity of pain: in the emergency department the pain is unchanged despite home cp interventions. Historical: - Allergies: 17:45 No Known Allergies; jl7 - Home Meds: 17:45 None [Active]; jl7 - PMHx: 17:45 None; jl7 - PSHx: 17:45 None; jl7 - Immunization history:: Client reports receiving the 2nd dose of the Covid vaccine. - Social history:: Smoking status: Patient denies any tobacco usage or history of. ROS: 18:00 Constitutional: Negative for body aches, chills, fever, poor PO intake. cp 18:00 Eyes: Negative for injury, pain, redness, and discharge. cp 18:00 ENT: Negative for drainage from ear(s), ear pain, sore throat, difficulty swallowing, difficulty handling secretions. 18:00 Cardiovascular: Negative for chest pain, edema, palpitations. 18:00 Respiratory: Negative for cough, shortness of breath, wheezing. 18:00 Abdomen/GI: Positive for abdominal pain, Negative for vomiting, diarrhea, constipation, anorexia. 18:00 Back: Negative for pain at rest, pain with movement. 18:00 : Negative for urinary symptoms, hematuria, testicular pain 18:00 Neuro: Negative for altered mental status, dizziness, headache, weakness. 18:00 All other systems are negative. Exam: 18:03 Constitutional: The patient appears in no acute distress, alert, awake, non-toxic, well cp developed, well nourished. 18:03 Head/Face: Normocephalic, atraumatic. cp 18:03 Eyes: Periorbital structures: appear normal, Conjunctiva: normal, no exudate, no injection, Sclera: no appreciated abnormality, Lids and lashes: appear normal, bilaterally. 18:03 ENT: External ear(s): are unremarkable, Nose: is normal, Mouth: Lips: moist, Oral mucosa: pink and intact, moist, Posterior pharynx: Airway: no evidence of obstruction, patent. 18:03 Chest/axilla: Inspection: normal, Palpation: is normal, no crepitus, no tenderness. 18:03 Cardiovascular: Rate: normal, Rhythm: regular. 18:03 Respiratory: the patient does not display signs of respiratory distress, Respirations: normal, no use of accessory muscles, no retractions, labored breathing, is not present, Breath sounds: are clear throughout, no decreased breath sounds, no stridor, no wheezing. 18:03 Abdomen/GI: Inspection: abdomen appears normal, Bowel sounds: active, all quadrants, Palpation: soft, in all quadrants, moderate abdominal tenderness, in the umbilical area and right lower quadrant, rebound tenderness, is not appreciated, involuntary guarding, is not appreciated. 18:03 Back: pain, is absent, ROM is normal. Vital Signs: 17:44 BP 125 / 68; Pulse 81; Resp 17; Temp 98.1; Pulse Ox 98% ; Weight 95.25 kg; Height 5 ft. jl7 11 in. (180.34 cm); Pain 7/10; 18:00 BP 127 / 80; Pulse 80; Resp 14; Pulse Ox 100% on R/A; tp1 19:54 BP 116 / 76; Pulse 62; Resp 18; Pulse Ox 99% ; kd3 21:04 BP 117 / 65; Pulse 67; Resp 18 S; Pulse Ox 100% on R/A; as6 17:44 Body Mass Index 29.29 (95.25 kg, 180.34 cm) jl7 MDM: 17:43 Patient medically screened. [facility] 18:00 Differential diagnosis: appendicitis, diverticulitis, gastritis, Pyelonephritis, cp Testicular Torsion, Ureterolithiasis, urinary tract infection, colitis. 20:20 Data reviewed: vital signs, nurses notes, lab test result(s), radiologic studies, CT cp scan. 20:35 Counseling: I had a detailed discussion with the patient and/or guardian regarding: the cp historical points, exam findings, and any diagnostic results supporting the discharge/admit diagnosis, lab results, radiology results, the need for further work-up and treatment in the hospital. 20:35 Physician consultation: Jama Childs MD was called at 20:25, regarding admission, cp patient's condition. 04/16 17:37 Order name: CBC with Diff; Complete Time: 19:36 cp 04/16 19:36 Interpretation: Normal except: WBC 13.9; EULOGIO% 76.7; NEUT A 10.6. cp 04/16 17:37 Order name: CMP; Complete Time: 19:36 cp 04/16 17:37 Order name: Lipase; Complete Time: 19:36 cp 04/16 17:37 Order name: Urine Microscopic Only; Complete Time: 19:36 cp 04/16 18:42 Order name: Urine Dipstick-Ancillary; Complete Time: 19:36 EDMS 04/16 20:41 Order name: SARS RAPID mw2 04/16 17:37 Order name: CT Abd/Pelvis - IV Contrast Only; Complete Time: 20:16 cp 04/16 17:37 Order name: IV Saline Lock; Complete Time: 18:21 cp 04/16 17:37 Order name: Labs collected and sent; Complete Time: 18:21 cp 04/16 20:25 Order name: NPO; Complete Time: 20:30 cp Administered Medications: 18:15 Drug: NS 0.9% 1000 ml Route: IV; Rate: 1 bolus; Site: right antecubital; tp1 21:06 Follow up: Response: No adverse reaction; IV Status: Completed infusion; IV Intake: as6 1000ml 18:15 Drug: Zofran (Ondansetron) 4 mg Route: IVP; Site: right antecubital; tp1 21:06 Follow up: Response: No adverse reaction as6 18:17 Drug: Ketorolac 15 mg Route: IVP; Site: right antecubital; tp1 21:06 Follow up: Response: No adverse reaction as6 20:46 Drug: Zosyn (piperacillin-tazobactam) 3.375 grams Route: IVPB; Infused Over: 60 mins; kd3 Site: right antecubital; 21:05 Follow up: IV Status: Infusion continued upon admission as6 Disposition Summary: 04/16/22 20:36 Hospitalization Ordered Hospitalization Status: Observation cp Provider: Jama Childs cp Location: DAY SURGERY OTHER cp Condition: Stable cp Problem: new cp Symptoms: have improved cp Bed/Room Type: Standard cp Room Assignment: cp Diagnosis - Acute appendicitis with localized peritonitis cp Forms: - Medication Reconciliation Form cp - SBAR form cp Signatures: Dispatcher [employer] Percy Colbert MD MD cha Page, Corey, PA PA cp Leal, Jahala RN RN jl7 Skyla Goodman RN RN kd3 Kiera Gray RN RN tp1 Kvng Mejia RN as6 Corrections: (The following items were deleted from the chart) 21:03 20:20 Counseling: I had a detailed discussion with the patient and/or guardian cp regarding: the historical points, exam findings, and any diagnostic results supporting the discharge/admit diagnosis, lab results, radiology results, the need for further work-up and treatment in the hospital, cp
[2022-04-16] MEDS ORDERED: MORPHINE 4 MG/ML SYR IV PRN (20:41)
[2022-04-16] MEDS ORDERED: ONDANSETRON 4 MG/2 ML VIAL IV PRN (20:41)
[2022-04-16] MEDS ORDERED: PIPERACIL/TAZO 3.375 GM VIAL IV ONE (20:49)
[2022-04-16] MEDS ORDERED: NA CHLORIDE 0.9% 100 ML ONE (20:49)
[2022-04-16 21:12] LABS: SARS-CoV-2 Antigen Rapid Res Negative (Negative)
[2022-04-16] MEDS ORDERED: ROCURONIUM 50 MG/5 ML VIAL IV ONE (21:16)
[2022-04-16] MEDS ORDERED: LIDOCAINE 2% MPF 5 ML VIAL ONE (21:16)
[2022-04-16] MEDS ORDERED: propofoL 200 MG/20 ML VIAL IV ONE (21:16)
[2022-04-16] MEDS ORDERED: FENTANYL CITR 100 MCG/2 ML ONE (21:17)
[2022-04-16] MEDS ORDERED: Ringers Lactate 1,000 ML IV ONE (21:22)
[2022-04-16] MEDS ORDERED: dexAMETHasone 10 MG/ML VIAL ONE (21:31)
[2022-04-16] MEDS ORDERED: GLYCOPYRROLATE 0.2 MG/ML SYR ONE ×2 (22:19→22:34)
[2022-04-16] MEDS ORDERED: NEOSTIGMINE 1 MG/ML -10 ML VIAL ONE (22:20)
[2022-04-16] MEDS ORDERED: HYDROCODONE/APAP 5/325 MG TAB PO PRN (22:26)
--- NOTE | 2022-04-16 22:32 | P.BOP ---
Preoperative diagnosis: acute appendicitis Postoperative diagnosis: same, umbilical hernia Primary procedure: 1. Laparoscopic appendectomy Secondary procedure: 2. open repair of umbilical hernia Estimated blood loss: <10cc Specimen: appendix, hernia sac Findings: see dicta Anesthesia: General Complications: None Drain(s): Other Transferred to: Recovery Room Condition: Good
[2022-04-16 23:31] VITALS: BMI 30.6
[2022-04-16] MEDS: D5 0.45 NS 1,000 ML IV SCH (23:37)
--- NOTE | 2022-04-17 03:43 | OP ---
Date of Procedure: 04/16/2022 Surgeon: Jama Childs MD Preoperative Diagnosis: Acute appendicitis. Postoperative Diagnoses: Acute appendicitis plus umbilical hernia. Procedures: Laparoscopic appendectomy and open repair of umbilical hernia. Estimated Blood Loss: Less than 10 cc. Specimens: Appendix and hernia sac. Findings: The patient had appendicitis, also had an incarcerated hernia sac with omentum. Anesthesia: General plus local. Complications: None. Indication: This is the case of a 26-year-old patient who comes emergently today with acute abdomina l pain with appendicitis. The benefits, alternatives, and risks of laparoscopic, possible open appen dectomy were fully explained, which include, but are not limited to infection, bleeding, damage to ad jacent structures, anesthesia complication, abscess, IA, and even . He also understands this ma y not relieve any symptoms, he might need more than one surgical intervention with surgical intervent ion. He understood and signed the consent. Procedure In Detail: The patient was brought to the operating room, placed in supine position. Anes thesia was done without complication. Abdominal area was prepped and draped in usual sterile fashion . Marcaine 0.5% was injected for local anesthetic in the infraumbilical region. Incision was anjelica d down and then we noticed the patient to have umbilical hernia. There was some omentum being trappe d in that area, so the hernia sac was opened. Omentum was reduced into the abdominal cavity after fu ll inspection. The hernia sac was removed and then I proceeded to place Vicryl #1 inside the fascia. Juan M trocar was carefully introduced. Pneumoperitoneum was obtained. After that, under direct v isualization, we put a 5 mm trocar in the suprapubic area in the left lower quadrant. This allowed m e to visualize the area of appendix and has confirmed as described in the CAT scan. It shows a long appendix largely enough. The base of appendix was spared from the inflammation, so we created a wind ow in the base of the appendix, transected that with an Endo MAMTA 45 mm nonvascular and Endo MAMTA 45 mm vascular for the mesoappendix x2. Further hemostasis was obtained with the help of hemoclips. Appe ndix was removed from abdominal cavity using Endo Catch through the umbilical incision. Area was ins pected once again, no bile leak, no bleeding. At that moment, I proceeded to remove the trocars unde r direct vision, deflated pneumoperitoneum, closed the fascia with #1 Vicryl, irrigated subcutaneous tissue, and also closed the umbilical hernia with #1 Vicryl. Irrigated subcutaneous tissue and close d that with 3-0 chromic and skin with [place]in. Sponge count and instrument counts were correct. The patient tolerated the procedure well. The patient was sent to recovery in stable condition. JUHI/JAYESH Voice ID: [id number] Report ID: [id number]
[2022-04-17 04:24] LABS: Absolute Lymphocytes (CBC) 0.8 K/uL (0.7-4.9); Hematocrit 43.2 % (39.6-49.0); Lymphocytes % 8.6 % (15.3-44.8); MCV 84.9 fL (80-100); MPV 9.5 fL (7.6-11.3); RBC Red Blood Cell Count 5.09 M/uL (4.33-5.43)
[2022-04-17 04:46] LABS: Albumin 3.7 g/dL (3.4-5.0); Bilirubin Direct 0.1 mg/dL (0-0.2); Bilirubin Total 0.5 mg/dL (0.2-1.0); Potassium 4.5 mmol/L (3.5-5.1)
[2022-04-17] MEDS ORDERED: PIPER TAZO 3.375 GM in NA CHLORIDE 0.9% 100 ML IV SCH (05:00)
[2022-04-17] MEDS: D5 0.45 NS 1,000 ML IV SCH (06:48)
--- NOTE | 2022-04-17 07:29 | HP ---
Date of Admission: 04/16/2022 Reason For Service: Acute appendicitis. History Of Present Illness: This is the case of a 26-year-old patient, who comes to us with abdomina l pain started this morning, periumbilical area, moved to the right lower quadrant, associated with n ausea. He think was cramps initially, he took some Motrin, did not improve. He comes to the ER jada y this evening and found to have appendicitis and a surgical consult was obtained. He denies any dys uria, hematuria, hematochezia, or melena. Denies any recent traveling out of the country. Denies an y family member sick at home. Past Medical History: None. Medications: None. Surgeries: None. Allergies: NONE. Social History: He does not smoke. He does not drink alcohol. Review of Systems: See H and P, 10 points, otherwise, unremarkable. Physical Examination: General: The patient is awake and alert. HEENT: Pupils are equal and reactive. Anicteric. Neck: Supple. Chest: Clear. Abdomen: Right lower quadrant tenderness with Rovsing sign positive and psoas signs positive. Genitalia/Rectal: Deferred. Extremities: Good capillary refill. Neuro: Cranial nerves 2 through 12 grossly within normal limits. Laboratory Data: Blood work shows WBC count of 13.9 with platelets of 183 and potassium was 3.5 with lipase 661. UA, nitrite negative. CAT scan of the abdomen and pelvis, acute appendicitis, interrog ated by Dr. Muniz. Impression: This is the case of a 26-year-old patient with acute appendicitis. The benefits, altern atives, and risks of laparoscopic possible open appendectomy were fully explained, which include, but not limited to, infection, bleeding, damage to adjacent structures, anesthesia complication, abscess , myocardial infarction, and even . He also understands this may not relieve his symptoms. He might need more than one surgical intervention. The patient was emergently booked in OR. JUHI/JAYESH Voice ID: [id number]
[2022-04-17 09:26] VITALS: BP 119/65; TEMP 97.2
--- NOTE | 2022-04-17 10:18 | P.DS ---
Admission Date: 04/16/22 Discharge Date: 04/17/22 Disposition: ROUTINE DISCHARGE Discharge Condition: GOOD Vital Signs/Physical Exam: Temp Pulse Resp BP Pulse Ox 97.2 F 87 16 119/65 97 04/17/22 08:00 04/17/22 08:00 04/17/22 08:00 04/17/22 08:00 04/17/22 08:00 General: Alert, In no apparent distress, Oriented x3, Cooperative HEENT: PERRLA, EOMI Neck: Supple Respiratory: Normal air movement Cardiovascular: No edema Gastrointestinal: Normal bowel sounds, Soft and benign Musculoskeletal: No erythema, No tenderness, No warmth Integumentary: No rashes, No breakdown, No erythema, No warmth, No cyanosis Neurological: Normal speech Laboratory Data at Discharge: WBC 9.4 K/uL (4.3-10.9) D 04/17/22 04:00 Hgb 14.8 g/dL (13.6-17.9) 04/17/22 04:00 Hct 43.2 % (39.6-49.0) 04/17/22 04:00 Plt Count 173 K/uL (152-406) 04/17/22 04:00 Sodium 138 mmol/L (136-145) 04/17/22 04:09 Potassium 4.5 mmol/L (3.5-5.1) 04/17/22 04:09 BUN 8 mg/dL (7-18) 04/17/22 04:09 Creatinine 0.94 mg/dL (0.55-1.3) 04/17/22 04:09 Glucose 147 mg/dL (74-106) H 04/17/22 04:09 Total Bilirubin 0.5 mg/dL (0.2-1.0) 04/17/22 04:09 AST 17 U/L (15-37) 04/17/22 04:09 ALT 25 U/L (12-78) 04/17/22 04:09 Alkaline Phosphatase 93 U/L (45-117) 04/17/22 04:09 Lipase 59 U/L (73-393) L 04/17/22 04:09 Home Medications: NK [No Home Meds] 04/17/22 Physician Discharge Instructions: KEep area dry for 48h then may remove outer dressing and shower, Cover staple with triple antibiotic ointment and bandaid Diet: Regular Activity: No lifting more than 10 lbs Followup: NONE,NONE [Primary Care Provider] - Jama Childs MD [ACTIVE - CAN ADMIT] - 04/23/22
[2022-04-17 10:53] VITALS: O2SAT 97
== END 2022-04-17 11:20 | disposition home or self-care (01) ==
LOC: ER 16:37 → ERHOLD 20:40 → 2ND 22:57
PROVIDERS: ADMIT Surgery; ATTEND Surgery
PROC: 0WQF0ZZ Repair Abdominal Wall, Open Approach (ICD-10-PCS; 2022-04-16)
PROC: 0DTJ4ZZ Resection of Appendix, Percutaneous Endoscopic Approach (ICD-10-PCS; principal; 2022-04-16 21:00)
DX: K35.80 Unspecified acute appendicitis (principal); K42.9 Umbilical hernia without obstruction or gangrene; Z86.16 Personal history of COVID-19; Z20.822 Contact with and (suspected) exposure to COVID-19
CPT/HCPCS: 96365; 96361; 85025 ×2; 80048; 36415; 80076; 88302; 88304; 83690 ×2; 80053; 74177; 94010; 96375; 99285; 87811; 44970; 49587; Q9967; J2704; J2710; J2543 ×2; J3010; J1100; J7799 ×2; J7120; J7030; J2405 ×2; G0378 ×2; 81003; 81015